=== PATIENT | female | born 1970 | race Caucasian/White ===

== ENCOUNTER 2018-12-09 14:42 | Emergency (ER) | payer OTHER, SELFPAY ==
[2018-12-09] MEDS ORDERED: FENTANYL CITR 100 MCG/2 ML ONE (16:10)
[2018-12-09] MEDS ORDERED: predniSONE 20 MG TAB ONE (16:12)
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
== END 2018-12-09 17:18 | disposition home or self-care (01) ==
LOC: ER 14:42
DX: M54.5 Low back pain (principal); I10 Essential (primary) hypertension; Z88.2 Allergy status to sulfonamides
CPT/HCPCS: 96372; 99283; J3010; J7512